=== PATIENT | female | born 1965 | race Caucasian/White ===

== ENCOUNTER 2022-04-29 08:32 | Outpatient (RCR) | payer BC, SELFPAY ==
--- NOTE | 2022-04-29 18:07 | OT.OPGNE ---
OT Outpatient General/Neuro Eval OT Outpatient General/Neuro Eval Start: 04/29/22 17:28 Freq: Status: Active Protocol: Document 04/29/22 17:29 YOSHI (Rec: 04/29/22 18:03 YOSHI [id number]) E-signed By Mayra Schaffer, OTR/L, CLT OT Outpatient Evaluation Details Type Type Eval Complexity Low Insurance Information Insurance Information Insurance Information Blue Cross/Blue Shield Outpatient History/Precautions Medical/Functional History Medical History Reviewed Yes Prior Level of Function/Mobility Pt affected by psoriasis ( affecting inner ear, face, jaw most, responding well to O[place], although after most recent large fall, did have a flare). Has been treated for BPPV in the past at [place] during a psoriasis flare, but has not needed since then. Has had series of 3 large falls in the past year ( 2020 tripped over a box, fell forward with concussion with frontal/ temporal pain with intermittent headaches, still point tender over the eye orbit). Most recent fall was backwards down 14 steps into her basement from a landing/ turn point. Numerous bruises on back of R arm and L shoulder. This OTR was able to review findings from [facility] evaluation of her as of . She has been feeling extra cog fog and increased need for processing time, word finding issues since her COVID episode. 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 No fitness program Oriented Patient Orientation Person,Place,Time,Situation Patient Subjective Subjective Patient Subjective Has been feeling extra cog fog and increased need for processing time, word finding issues since her COVID episode a year ago. Has not been able to read a single complete book since then, On Post Concussion Scale (21 symptom areas, 126 is maximal score, where zero is high QOL) , pt scores 19 /132 with 10/21 symptoms.?2/6 neck pain, head pressure, head ache,?1/6 with falling asleep, staying asleep, 0/6 with light and 0/6 sound sensitivity.?2/6 difficulty concentrating, and fog, daily drowsiness at 2 pm 2/6. 0/6 vision problems and emotional symptoms.?? Objective Measures Shoulder Shoulder ROM WNL for BUE all planes Shoulder Strength 5/5/ for BUE all planes Home Maintenance Assessment ADL Oral Care Ability Independent Bathing Ability Independent Eating (Feeding) Ability Independent Upper Body Dressing Ability Independent Lower Body Dressing Ability Independent Grooming Ability Independent Toileting Ability Independent Ambulation Ability Independent Home Management Meal Preparation Ability Independent Cleaning Ability Independent Shopping Ability Independent Assistance Assistance Currently Received Tasks with multiple steps are taking more checklists to complete, difficulty staying on topic with conversations, feeling scattered. NOt needing extra family assist, just extra time and is really fatigued by her very busy days , which she tends to pack quite tightly. 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 Takes Melatonin to assist falling asleep 5x/week, works well. Vision/Hearing Vision Tracking WNL Saccades WNL Near Point of Convergence WNL Hearing Hearing WNL no c/o Cognitive Assessments Performed Comments Cognitive Assessments Performed Comments To assess rapid processing and multi tasking, completed [place] Making A: 19 sec (>90th percentile for age). Part B with higher level alternating timed sequencing:?44 sec (?80% percentile). Symbol Digit Modalities test, for higher level timed problem solving, decoding symbols in numbers rapidly ( scores 48/48 , > WNL where 44 is WNL for her age)? No need for MOCA or CAM today, per no complaints of higher level ADL, situational or recall issues. Pt is compensating well using list making. Assessment Assessment Assessment Pt is a very active 56 y/o female who is having some cognitive fog, fatigue and some attention issues that started after her bout of COVID last year and have returned after her most recent fall backward down stairs on 04/11/22. Occupational Therapy Treatment Plan - OP Potential Rehabilitation Potential Excellent Set Goals Goals Set with Patient Yes Goals Goals Pt will demonstrate improved energy conservation by identifying 4 strategies they can use to conserve energy during daily ADL/IADL routines , Progress met Treatment Plan Treatment Plan Evaluation,Self-Care/Home Management,Caregiver Training, Education Expected Duration Comments evaluation and education session to start, may return for additional 2 visits if still needed. Comment Summary Educated in adding walking bursts 10 min in am and pm session to include walking or yoga nidra/guided mediation brain rest ( mid day 3:30) Certification Certification I Certify That: Therapy Services Provided, Therapy Plan Established, Therapy Plan Reviewed PCP---- ATTENTION--- Dr. Claudia Boogie-- I am not seeing orders for a PT evaluation ( although pt believes she has PT eval scheduled in [place], I am not seeing this on her list of upcoming appointments). With her history of inner ear soft tissue changes, prior BPPV ( could she be having some soft signs of return, contributing to sudden falls?) and continued headaches, neck pain, it would be helpful to add a PT referral. Thank you so very much for the OT referral! Mayra Schaffer, OTR/l CLT
== END 2023-03-25 11:27 | disposition home or self-care (01) ==
PROVIDERS: PCP Physician Assistant Medical; Visit Provider Physician Assistant Medical
DX: R29.6 Repeated falls (principal); Z51.89 Encounter for other specified aftercare
CPT/HCPCS: 97165; 97535

== ENCOUNTER 2022-04-29 11:53 | Outpatient (CLI) | payer BC, SELFPAY ==
--- NOTE | 2022-04-29 13:00 | CRLHL7_ITS ---
For Patients: As a result of the Century Cures Act, medical imaging exams and procedure reports are released immediately into your electronic medical record. You may view this report before your referring provider. If you have questions, please contact your health care provider. BILATERAL SCREENING MAMMOGRAM WITH COMPUTER-AIDED DETECTION AND TOMOSYNTHESIS TECHNIQUE: CC and MLO views were obtained. These mammographic images have been obtained using full-field digital technique. These mammographic images were interpreted with the benefit of computer-aided detection. Breast Tomosynthesis was used in this interpretation. COMPARISON FILM: 03/08/19, 06/25/17, 08/21/15. FINDINGS: The breasts are almost entirely fatty IMPRESSION: There is no radiographic evidence for malignancy. ASSESSMENT: BI-RADS Category 1: Negative RECOMMENDATION: Routine screening mammogram in 1 year. A lay language report of this examination will be provided to the patient. Jamil Bhatti M.D. Diagnostic Radiologist [email or web address] ELVIN/Dictated by: Jamil Bhatti MD @ 04/29/2022 1:47:00 PM (Electronically Signed)
== END 2022-04-29 11:54 | disposition home or self-care (01) ==
LOC: MAMMO 11:54
PROVIDERS: PCP Physician Assistant Medical; Visit Provider Physician Assistant
DX: Z12.31 Encounter for screening mammogram for malignant neoplasm of breast (principal)
CPT/HCPCS: 77063; 77067

== ENCOUNTER 2022-11-07 11:35 | Outpatient (CLI) | payer BC, SELFPAY | END 2022-11-07 11:36 | disposition home or self-care (01) | LOC: NFLDREF 11-15 07:33 | PROVIDERS: PCP Physician Assistant Medical; Referring Provider Physician Assistant Medical; Visit Provider Family Medicine | DX: N39.0 Urinary tract infection, site not specified (principal) | CPT/HCPCS: 87086; 87186 ==

== ENCOUNTER 2022-12-30 15:18 | Outpatient (CLI) | payer BC, SELFPAY ==
--- NOTE | 2022-12-30 15:30 | CRLHL7_ITS ---
For Patients: As a result of the Century Cures Act, medical imaging exams and procedure reports are released immediately into your electronic medical record. You may view this report before your referring provider. If you have questions, please contact your health care provider. DUPLEX VENOUS INSUFFICIENCY ULTRASOUND BILATERAL LOWER EXTREMITY, 12/30/2022 CLINICAL HISTORY: Varicose veins. Venous insufficiency. Rule out DVT. COMPARISON: None. TECHNIQUE: The lower extremity veins were examined with hernandez-scale ultrasound, color-flow and Doppler spectral analysis. Compressibility of the veins by transducer pressure was used to evaluate the presence or absence of DVT/SVT at sites per exam specific protocol. Assessment of venous competence was performed by Doppler spectral analysis and was performed and documented at exam specific sites in an upright position for venous insufficiency studies. FINDINGS: DEEP SYSTEM: RIGHT: Vessel: CFV: Competent. DVT: N. SFV Prox: Competent. DVT: N. SFV Mid: Competent. DVT: N. SFV Distal: Competent. DVT: N. Pop: Competent. DVT: N. PTV1: Competent. DVT: N. PTV2: Competent. DVT: N. LEFT: Vessel: CFV: Competent. DVT: N. SFV Prox: Competent. DVT: N. SFV Mid: Competent. DVT: N. SFV Distal: Competent. DVT: N. Pop: Competent. DVT: N. PTV1: Competent. DVT: N. PTV2: Competent. DVT: N. SUPERFICIAL SYSTEM: RIGHT: Vessel: SFJ: 7 mm. Competent. GSV Thigh Prox: 6 mm. Incompetent. GSV Thigh Mid: 5 mm. Incompetent. GSV Thigh Distal: 5 mm. Incompetent. GSV Calf Prox: 6 mm. Incompetent. GSV Calf Mid: 5 mm. Incompetent. GSV Calf Distal: 2 mm. Competent. LSV Prox: 6 mm. LSV Mid: 3 mm. Competent. LEFT: SFJ: 7 mm. Incompetent. GSV Thigh Prox: 5 mm. Competent. GSV Thigh Mid: 4 mm. Competent. GSV Thigh Distal: 3 mm. Competent. GSV Calf Prox: 4 mm. Competent. GSV Calf Mid: 4 mm. Incompetent. GSV Calf Distal: 3 mm. Competent. LSV Prox: 6 mm. LSV Mid: 2 mm. Competent. PERFORATORS: Right Distal Calf: 3 mm. Competent. Left Mid-Calf: 4 mm. Incompetent. CEAP Class 1 (Superficial spider Veins): Bilateral calves and ankles. CEAP Class 2 (Simple Varicose Veins): Right ankle. IMPRESSION: 1. Right Lower Extremity: - no deep venous thrombosis or incompetence. - no superficial venous thrombosis. - superficial venous incompetence in the GSV from the proximal thigh to mid-calf. 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 - CEAP Class 1 at the calf and ankle, and CEAP Class 2 at the ankle. 2. Left Lower Extremity: - no deep venous thrombosis or incompetence. - no superficial venous thrombosis. - superficial venous incompetence at the SFJ and GSV in the mid-calf. - seamless tube mill operator vein in the mid-calf with incompetence, as described below. - CEAP Class 1 at the calf and ankle. Ananda Guerra M.D. Vascular and Interventional Radiology [email or web address] LIV/teena dickinson/Dictated by: Ananda Guerra MD @ 12/31/2022 10:53:00 AM (Electronically Signed)
== END 2022-12-30 15:19 | disposition home or self-care (01) ==
LOC: US 15:19
PROVIDERS: PCP Physician Assistant Medical; Visit Provider Physician Assistant Medical
DX: I83.93 Asymptomatic varicose veins of bilateral lower extremities (principal)
CPT/HCPCS: 93970

== ENCOUNTER 2023-07-27 11:49 | Outpatient (CLI) | payer BC, SELFPAY | END 2023-07-27 11:50 | disposition home or self-care (01) | PROVIDERS: PCP Physician Assistant Medical; Visit Provider Physician Assistant Medical | DX: Z00.00 Encounter for general adult medical examination without abnormal findings (principal); I10 Essential (primary) hypertension; R73.09 Other abnormal glucose; E11.9 Type 2 diabetes mellitus without complications; R53.83 Other fatigue; M25.50 Pain in unspecified joint | CPT/HCPCS: 80053; 80061; 82306; 82607; 83540; 83550; 84443; 84550; 85651; 86039; 86141; 86200; 86431; 86618 ==

== ENCOUNTER 2023-10-13 16:55 | Outpatient (CLI) | payer BC, SELFPAY ==
--- NOTE | 2023-10-13 17:20 | CRLHL7_ITS ---
For Patients: As a result of the Cures Act, medical imaging exams and procedure reports are released immediately into your electronic medical record. You may view this report before your referring provider. If you have questions, please contact your health care provider. BILATERAL SCREENING MAMMOGRAM WITH COMPUTER-AIDED DETECTION AND TOMOSYNTHESIS TECHNIQUE: CC and MLO views were obtained. These mammographic images have been obtained using full-field digital technique. These mammographic images were interpreted with the benefit of computer-aided detection. Breast Tomosynthesis was used in this interpretation. COMPARISON FILM: 04/29/22, 03/08/19, 06/25/17. FINDINGS: The breasts are almost entirely fatty IMPRESSION: There is no radiographic evidence for malignancy. ASSESSMENT: BI-RADS Category 1: Negative RECOMMENDATION: Routine screening mammogram in 1 year. A lay language report of this examination will be provided to the patient. Jamil Bhatti M.D. Diagnostic Radiologist [email or web address] SHANICE/teena Transcribed: 4:46 p.zoila dickinson/Dictated by: Jamil Bhatti MD @ 10/15/2023 11:01:00 AM (Electronically Signed)
== END 2023-10-13 16:56 | disposition home or self-care (01) ==
LOC: MAMMO 16:56
PROVIDERS: PCP Physician Assistant Medical; Visit Provider Physician Assistant Medical
DX: Z12.31 Encounter for screening mammogram for malignant neoplasm of breast (principal)
CPT/HCPCS: 77063; 77067

== ENCOUNTER 2024-11-21 08:39 | Outpatient (CLI) | payer BC, SELFPAY | END 2024-11-21 08:40 | disposition home or self-care (01) | LOC: NFLDREF 11-22 05:20 | PROVIDERS: PCP Physician Assistant Medical; Referring Provider Physician Assistant Medical; Visit Provider Physician Assistant Medical | DX: B37.2 Candidiasis of skin and nail (principal); I10 Essential (primary) hypertension; N32.89 Other specified disorders of bladder; R73.03 Prediabetes; R73.09 Other abnormal glucose; G47.33 Obstructive sleep apnea (adult) (pediatric); E66.01 Morbid (severe) obesity due to excess calories; R79.82 Elevated C-reactive protein (CRP) | CPT/HCPCS: 80053; 80061; 84443; 86140 ==

== ENCOUNTER 2024-12-29 15:35 | Outpatient (CLI) | payer BC, SELFPAY ==
--- NOTE | 2024-12-29 16:00 | CRLHL7_ITS ---
For Patients: As a result of the Century Cures Act, medical imaging exams and procedure reports are released immediately into your electronic medical record. You may view this report before your referring provider. If you have questions, please contact your health care provider. Indication: Chronic sinus disease Technique: Performed without IV contrast Comparison: MRI brain 05/29/2021 Findings: Frontal sinuses: Clear. Ethmoid sinuses: Clear. Maxillary sinuses: Clear. The maxillary sinus drainage pathways are patent on both sides. Sphenoid sinuses: Clear, including both sphenoethmoidal recesses. Nasal Cavity: Midline nasal septum. No nasal polyps. No TMJ abnormalities identified. Trace amount of left mastoid fluid. Middle ear cavities are normal. Generalized cortical atrophy. Impression: 1. Clear sinuses. 2. Trace amount of left mastoid effusion. Please note that all CT scans at this facility use dose modulation, iterative reconstruction, and/or weight-based dosing when appropriate to reduce radiation dose to as low as reasonably achievable. Dictated by Jamil Bhatti MD @ 12/30/2024 11:08:20 AM (Electronically Signed)
== END 2024-12-29 15:36 | disposition home or self-care (01) ==
LOC: CT 15:35
PROVIDERS: PCP Physician Assistant Medical; Visit Provider Otolaryngology
DX: J32.9 Chronic sinusitis, unspecified (principal)
CPT/HCPCS: 70486

== ENCOUNTER 2025-01-23 08:17 | Outpatient (CLI) | payer BC, SELFPAY ==
--- NOTE | 2025-01-23 09:25 | P.ANES_ITS ---
Anesthesia Charges Start Date/Time Anesthesia Start Date: 01/23/25 Anesthesia Start Time: 08:49 Stop Date/Time Anesthesia Stop Date: 01/23/25 Anesthesia Stop Time: 09:18 Coding CPT Codes CPT Codes: ANES LWR INTST SCR COLSC - 32276 ([id number]) P3 - PATIENT W/SEVERE SYS DISEASE, QX - UNIVERSITY REGISTRAR SVC W/ MD MED DIRECTION, QK - METAL FURNITURE ASSEMBLY SUPERVISOR 2-4 CNCRNT ANES PROC
--- NOTE | 2025-01-23 09:25 | W.ANESCHARGE ---
Anesthesia Charges Start Date/Time Anesthesia Start Date: 01/23/25 Anesthesia Start Time: 08:49 Stop Date/Time Anesthesia Stop Date: 01/23/25 Anesthesia Stop Time: 09:18 Coding CPT Codes CPT Codes: ANES LWR INTST SCR COLSC - 65797 ([id number]) P3 - PATIENT W/SEVERE SYS DISEASE, QX - MOTH EXTERMINATOR SVC W/ MD MED DIRECTION, QK - STORM WINDOW INSTALLER 2-4 CNCRNT ANES PROC
--- NOTE | 2025-01-23 10:15 | P.ANES_ITS ---
Anesthesia Charges Start Date/Time Anesthesia Start Date: 01/23/25 Anesthesia Start Time: 08:49 Stop Date/Time Anesthesia Stop Date: 01/23/25 Anesthesia Stop Time: 09:18 Coding CPT Codes CPT Codes: ANES LWR INTST SCR COLSC - 34744 ([id number]) QK - SQL ENGINEER 2-4 CNCRNT ANES PROC, QX - ANIMAL CARE TAKER SVC W/ MED DIRECTION, P3 - PATIENT W/SEVERE SYS DISEASE
--- NOTE | 2025-01-23 10:15 | W.ANESCHARGE ---
Anesthesia Charges Start Date/Time Anesthesia Start Date: 01/23/25 Anesthesia Start Time: 08:49 Stop Date/Time Anesthesia Stop Date: 01/23/25 Anesthesia Stop Time: 09:18 Coding CPT Codes CPT Codes: ANES LWR INTST SCR COLSC - 15569 ([id number]) QK - GERIATRIC CASE MANAGER 2-4 CNCRNT ANES PROC, QX - LATHE HAND SVC W/ MED DIRECTION, P3 - PATIENT W/SEVERE SYS DISEASE
== END 2025-01-23 08:18 | disposition home or self-care (01) ==
LOC: OP CLINIC 08:18
PROVIDERS: PCP Physician Assistant Medical; Visit Provider Internal Medicine
DX: Z12.11 Encounter for screening for malignant neoplasm of colon (principal); Z86.0109 Personal history of other colon polyps
CPT/HCPCS: 00812; 45378; J2704

== ENCOUNTER 2025-03-20 15:08 | Outpatient (CLI) | payer BC, SELFPAY ==
--- NOTE | 2025-03-20 15:20 | CRLHL7_ITS ---
For Patients: As a result of the Century Cures Act, medical imaging exams and procedure reports are released immediately into your electronic medical record. You may view this report before your referring provider. If you have questions, please contact your health care provider. INDICATION: BILATERAL SCREENING MAMMOGRAM, ASYMPTOMATIC 59 Y/O FEMALE COMPARISON: 10/13/2023, 04/29/2022, 03/08/2019 TECHNIQUE: Digital mammogram in CC and MLO projections including computer-aided detection (CAD) and tomosynthesis. BREAST COMPOSITION: The breasts are almost entirely fatty. FINDINGS: No suspicious findings. ASSESSMENT: BI-RADS 1 Negative RECOMMENDATION: Annual screening mammogram. A lay language report of this examination will be provided to the patient. Dictated by: Jamil Bhatti MD @ 03/21/2025 11:49:02 (Electronically Signed)
== END 2025-03-20 15:09 | disposition home or self-care (01) ==
LOC: MAMMO 15:09
PROVIDERS: PCP Physician Assistant Medical; Visit Provider Physician Assistant Medical
DX: Z12.31 Encounter for screening mammogram for malignant neoplasm of breast (principal)
CPT/HCPCS: 77063; 77067

== ENCOUNTER 2025-05-10 12:11 | Outpatient (CLI) | payer BC, SELFPAY | END 2025-05-10 12:12 | disposition home or self-care (01) | PROVIDERS: PCP Physician Assistant Medical; Visit Provider Family Medicine | DX: R00.2 Palpitations (principal) | CPT/HCPCS: 80048; 84439 ==